=== PATIENT | male | born 2005 | race Two or more races ===

== ENCOUNTER 2024-06-27 14:04 | Emergency (ER) | payer OTHER, MEDICAID ==
[~2024-06-27] VITALS: Ht 167.6 cm; Wt 67.6 kg
[2024-06-27 14:29] VITALS: BP 125/66; PULSE 60; RESP 18; O2SAT 98
[2024-06-27] MEDS: LIDOCAINE 1% HCL (LOCAL ANESTH.) INJ 20ML MDV ID ONE (16:52)
[2024-06-27] MEDS ORDERED: IBUP1TAB4 PO (17:00)
[2024-06-27] MEDS: BACITRACIN TOP OINT 1 UD PKG TOP ONE (17:57)
[2024-06-27] MEDS: IBUPROFEN 400 MG TAB PO ONE (18:15)
== END 2024-06-27 18:18 | disposition home or self-care (01) ==
LOC: ER 14:04
DX: S50.352A Superficial foreign body of left elbow, initial encounter (principal); S50.312A Abrasion of left elbow, initial encounter; Z79.899 Other long term (current) drug therapy; V89.2XXA Person injured in unspecified motor-vehicle accident, traffic, initial encounter; Y93.I9 Activity, other involving external motion; Y92.488 Other paved roadways as the place of occurrence of the external cause; Y99.8 Other external cause status
CPT/HCPCS: 10120; 73080; 73110; 73120; 73130; J2001